=== PATIENT | female | born 1975 | race Caucasian/White ===

== ENCOUNTER 2023-11-04 14:31 | Emergency (ER) | payer OTHER, SELFPAY ==
[2023-11-04 14:36] VITALS: BP 116/84; PULSE 89; TEMP 36.6; O2SAT 98; BMI 22.9
--- NOTE | 2023-11-04 14:52 | XR_ITS ---
[facility] [place] [id number] Patient Name: NICOLE CORDERO MRN: [id number] date: 1975 Sex: F Assigned Patient Location: ER Current Patient Location: ED.MAIN Accession/Order Number: [id number] Exam Date: 11/04/2023 14:57 Report Date: 11/04/2023 16:07 At the request of: HANNAH CARLSON Procedure: XR chest 2V CHEST X-RAY, TWO VIEWS HISTORY: Cough. COMPARISON: None. FINDINGS: The heart, jeffrey, and mediastinum are unremarkable. The lungs are grossly clear. There are no pleural effusions. There is no pneumothorax. XR/XR chest 2V IMPRESSION: No evidence of acute cardiopulmonary disease. Electronically authenticated by: ABBY PALMER Date: 11/04/2023 16:07
--- NOTE | 2023-11-04 14:53 | ED.URI1 ---
HPI - URI/Sore Throat General Chief Complaint: Upper Respiratory Infection Stated Complaint: COUGH AND CONGESTION Time Seen by Provider: 11/04/23 14:43 Limitations: no limitations History of Present Illness HPI Narrative: 48-year-old female presents to the emergency department for cough. She has had this for few days and her dad recently was admitted for pneumonia and RSV. She had been around him. She had part of her right middle lobe removed in May of this year for lung cancer. She is been coughing up some yellow phlegm, no hemoptysis and she has not had a known fever. Related Data Home Medications ?Medication ?Instructions ?Recorded ?Confirmed tirzepatide 2.5 mg/0.5 mL 2.5 mg subcut .weekly 11/04/23 11/04/23 subcutaneous pen injector (Faisal) Previous Rx's ?Medication ?Instructions ?Recorded benzonatate 100 mg capsule 100 mg PO TID PRN cough #20 caps 11/04/23 loratadine 5 mg-pseudoephedrine ER 1 tab PO Q12H PRN nasal congestion 11/04/23 120 mg tablet,extended #20 tabs release,12hr (Claritin-D 12 Hour) Allergies Allergy/AdvReac Type Severity Reaction Status Date / Time insulin glargine Allergy Mild Anaphylaxis Verified 11/04/23 14:43 [From Lantus U-100 Insulin] Review of Systems ROS Narrative A ten point review of systems is negative except as noted above. Exam Narrative Exam Narrative: Nurses note and vital signs reviewed and patient is not hypoxic. General: The patient appears well and in no apparent distress. Patient is resting comfortably on cart. She is speaking in full sentences Skin: Warm, dry, no pallor noted. There is no rash noted. Head: Normocephalic, atraumatic Eye: Normal conjunctiva, no drainage Ears, Nose, Mouth, and Throat: oral mucosa is moist. Nares patent. Cardiovascular: Regular Rate and Rhythm Respiratory: Patient is in no distress, no accessory muscle use, lungs are clear to auscultation, no wheezing, rales or rhonchi. Good air movement present. Back: non-tender GI: Soft and nontender Musculoskeletal: The patient has no evidence of calf tenderness, no pitting edema, symmetrical pulses noted bilaterally Neurological: A&O, normal speech Psychiatric: Cooperative Constitutional Vital Signs, click to edit/add: Last Vital Signs Temp 97.8 F 11/04/23 14:36 Pulse 89 11/04/23 14:36 Resp 18 11/04/23 14:36 BP 116/84 11/04/23 14:36 Pulse Ox 99 11/04/23 15:15 O2 Del Method Room Air 11/04/23 15:15 Course Vital Signs Vital signs: Vital Signs Temperature 97.8 F 11/04/23 14:36 Pulse Rate 89 11/04/23 14:36 Respiratory Rate 18 11/04/23 14:36 Blood Pressure 116/84 11/04/23 14:36 Pulse Oximetry 98 11/04/23 14:36 Oxygen Delivery Method Room Air 11/04/23 14:36 Temperature 97.8 F 11/04/23 14:36 Pulse Rate 89 11/04/23 14:36 Respiratory Rate 18 11/04/23 14:36 Blood Pressure 116/84 11/04/23 14:36 Pulse Oximetry 99 11/04/23 15:15 Oxygen Delivery Method Room Air 11/04/23 15:15 MDM - URI/Sore Throat MDM Narrative Medical decision making narrative: COVID, RSV, and chest x-ray are all negative. My clinical impression is that she has a viral infection. Antibiotics are not indicated. Treatment diagnosis and follow-up were discussed with the patient. Differential Diagnosis Differential diagnosis: Likely upper respiratory infection, viral infection, bronchitis and other (COVID, pneumonia) Lab Data Attestation: I reviewed the patient's lab results. Labs: Lab Results 11/04/23 Range/Units 14:38 RSV Antigen Not detected (NOT DETECTE) SARS-CoV-2 Ag (CV2AG) Negative (NEGATIVE) Imaging Data Chest x-ray: Radiologist's impression: ITS Impressions Chest X-Ray 11/04/23 14:52 IMPRESSION: No evidence of acute cardiopulmonary disease. Electronically authenticated by: ABBY PALMER Date: 11/04/2023 16:07 Discharge Plan Discharge Stand Alone Forms: Portal Instructions Chief Complaint: Upper Respiratory Infection Clinical Impression: Bronchitis Patient Disposition: Home, Self-Care Time of Disposition Decision: 16:26 Condition: Good Mode of Transportation: Private Vehicle Prescriptions / Home Meds: New benzonatate 100 mg capsule 100 mg PO TID PRN (Reason: cough) Qty: 20 0RF Claritin-D 12 Hour 5-120 mg tablet extended release 12 hr 1 tab PO Q12H PRN (Reason: nasal congestion) Qty: 20 0RF No Action Mounjaro 2.5 mg/0.5 mL pen injector 2.5 mg SUBCUT .weekly Print Language: Polish Instructions: Acute Bronchitis (ED) Referrals: Physician,Non-Staff, [Physician] - 1 week
[2023-11-04 15:11] LABS: Internal Control Within Normal Limits; Respiratory Syncytial Virus Not Detected (NOT DETECTE); SARS-CoV-2 Ag NEGATIVE (NEGATIVE)
[2023-11-04 15:15] VITALS: O2SAT 99
[2023-11-04 16:37] VITALS: BP 120/68; PULSE 74; O2SAT 99
== END 2023-11-04 16:38 | disposition home or self-care (01) ==
PROVIDERS: Emergency Provider Emergency Medicine; PCP Family Medicine
DX: J40 Bronchitis, not specified as acute or chronic (principal); Z20.822 Contact with and (suspected) exposure to COVID-19
CPT/HCPCS: 71046; 87420; 87811; 99285

== ENCOUNTER 2024-01-03 16:24 | Emergency (ER) | payer OTHER, SELFPAY ==
[2024-01-03 16:30] VITALS: BP 120/86; PULSE 88; TEMP 37.1; O2SAT 96; BMI 23.8
--- NOTE | 2024-01-03 16:41 | ED_ITS ---
HPI HPI - General Adult General Chief complaint: Back Pain/Injury Stated complaint: Back Pain Time Seen by Provider: 01/03/24 16:30 Source: patient Mode of arrival: walk-in Limitations: no limitations History of Present Illness HPI narrative: Patient is a 48-year-old female who presents to the emergency department for pain in the right thoracic back along the area where she had a previous lobectomy of the right middle lobe of the lung. She states she was diagnosed with cancer but when the lobe of the lung was removed, there was no cancer and she is not currently being treated for cancer. She states she did have burning pain along the area for several months after the surgery in May of this year. She states the pain has resolved and now since yesterday has returned. She states she is not sure if the pain is from a pulled muscle or from the previous surgery. She has not had any fevers, cough or congestion. She denies a possibility of . She took ibuprofen 1 hour ago without improvement. No hemoptysis. Related Data Home Medications ?Medication ?Instructions ?Recorded ?Confirmed tirzepatide 2.5 mg/0.5 mL 2.5 mg subcut .weekly 11/04/23 11/04/23 subcutaneous pen injector (Faisal) Previous Rx's ?Medication ?Instructions ?Recorded benzonatate 100 mg capsule 100 mg PO TID PRN cough #20 caps 11/04/23 loratadine 5 mg-pseudoephedrine ER 1 tab PO Q12H PRN nasal congestion 11/04/23 120 mg tablet,extended #20 tabs release,12hr (Claritin-D 12 Hour) methocarbamol 750 mg tablet 750 mg PO TID PRN pain #20 tabs 01/03/24 Allergies Allergy/AdvReac Type Severity Reaction Status Date / Time insulin glargine Allergy Mild Anaphylaxis Verified 01/03/24 16:30 [From Lantus U-100 Insulin] Opioid HPI Opioid Management Most Recent Opioid Data: Last Pain Scale 8 01/03/24 16:37 Review of Systems ROS Constitutional Denies: fever or chills Ears, nose, mouth, and throat Denies: throat pain or nasal congestion Cardiovascular Denies: chest pain Respiratory Reports: pain on inspiration; Denies: shortness of breath or cough Gastrointestinal Denies: nausea or vomiting Musculoskeletal Reports: back pain; Denies: neck pain Integumentary/Breast Denies: rash Neurological Denies: headache, numbness in extremities or weakness in extremities Hematologic/Lymphatic Denies: easy bruising or easy bleeding PFSH PFS Social History Little interest or pleasure in doing things: not at all Feeling down, depressed, or hopeless: not at all Exam Narrative Exam Narrative: Gen.: Awake, alert, in no distress Head: Normocephalic, atraumatic ENT: Moist mucous membranes Respiratory: No respiratory distress, lungs clear bilaterally; 3 small well- healed surgical incisions along the right thoracic back. No rash or color change noted Cardio: Regular rate and rhythm Back: No bony tenderness of the T-spine or L-spine Extremities: Moves extremities equally Psych: Normal mood and affect Neuro: No focal neuro deficit Skin: Warm, dry, intact Constitutional Vital Signs, click to edit/add: Last Vital Signs Temp 98.8 F 01/03/24 16:30 Pulse 88 01/03/24 16:30 Resp 16 01/03/24 16:30 BP 120/86 01/03/24 16:30 Pulse Ox 96 01/03/24 16:30 O2 Del Method Room Air 01/03/24 16:30 Course Vital Signs Vital signs: Vital Signs Temperature 98.8 F 01/03/24 16:30 Pulse Rate 88 01/03/24 16:30 Respiratory Rate 16 01/03/24 16:30 Blood Pressure 120/86 01/03/24 16:30 Pulse Oximetry 96 01/03/24 16:30 Oxygen Delivery Method Room Air 01/03/24 16:30 Temperature 98.8 F 01/03/24 16:30 Pulse Rate 88 01/03/24 16:30 Respiratory Rate 16 01/03/24 16:30 Blood Pressure 120/86 01/03/24 16:30 Pulse Oximetry 96 01/03/24 16:30 Oxygen Delivery Method Room Air 01/03/24 16:30 Medical Decision Making MDM Narrative Medical decision making narrative: Laboratory studies reviewed and noted within normal limits including D-dimer. Two-view chest x-ray with no evidence of acute cardiopulmonary changes or thoracic changes. Patient treated for musculoskeletal pain. She is agreeable to a muscle relaxant for home although she was not agreeable to any narcotic medications or taking a steroid at home. She can continue ibuprofen [id number]. Follow-up with PCP and return to the ER if symptoms change or worsen SHARED APC VISIT, PHYSICIAN ATTESTATION: [id number] I performed a substantive part of the MDM during the patient?s E/M visit. I personally evaluated and examined the patient. I personally made or approved the documented management plan and acknowledge its risk of complications. Medical Records Medical records reviewed: Yes I reviewed the patient's medical records Lab Data Lab results reviewed: Yes I reviewed the patient's lab results Labs: Lab Results 01/03/24 Range/Units 16:45 WBC 7.7 (4.0-11.0) 10^3/uL RBC 4.49 (4.20-5.40) 10^6/uL Hgb 14.4 (12.0-16.0) g/dL Hct 42.1 (36.0-48.0) % MCV 93.8 (81.0-99.0) fL MCH 32.1 (26.7-34.0) pg MCHC 34.2 (29.9-35.2) g/dL RDW 12.8 (11.0-15.0) % Plt Count 234 (150-450) 10^3/uL MPV 8.9 L (9.5-13.5) fL Neut % (Auto) 50.2 (43.0-75.0) % Lymph % (Auto) 40.2 (20.5-60.0) % Grant % (Auto) 5.6 (1.7-12.0) % Eos % (Auto) 2.7 (0.9-7.0) % Baso % (Auto) 1.0 (0.2-2.0) % Neut # (Auto) 3.9 (1.4-6.5) 10^3/uL Lymph # (Auto) 3.1 (1.2-3.8) 10^3/uL Grant # (Auto) 0.4 (0.3-0.8) 10^3/uL Eos # (Auto) 0.2 (0.0-0.7) 10^3/uL Baso # (Auto) 0.1 (0.0-0.1) 10^3/uL Abs Immat Gran (auto) 0.02 (0.00-0.03) 10^3/uL Imm/Tot Granulo (auto) 0.3 (0.0-0.5) % D-Dimer <0.19 (<=0.59) mg/L FEU Sodium 136 (136-145) mmol/L Potassium 3.9 (3.5-5.1) mmol/L Chloride 102 (98-107) mmol/L Carbon Dioxide 30.9 (21.0-32.0) mmol/L Anion Gap 7.0 BUN 13.0 (7.0-18.0) mg/dL Creatinine 0.61 (0.55-1.02) mg/dL Est GFR ( Amer) >60 (>=60) Est GFR (Non-Af Amer) >60 (>=60) BUN/Creatinine Ratio 21.3 Glucose 102 (74-106) mg/dL Calcium 9.4 (8.5-10.1) mg/dL Total Bilirubin 0.2 (0.2-1.0) mg/dL AST 14 L (15-37) U/L ALT 25 (14-59) U/L Alkaline Phosphatase 123 H (46-116) U/L Troponin I High Sens 5.0 (4.0-51.3) pg/mL Total Protein 6.9 (6.4-8.2) g/dL Albumin 3.5 (3.4-5.0) g/dL Globulin 3.4 g/dL Albumin/Globulin Ratio 1.0 Lipase 41.0 (16.0-77.0) U/L Serum HCG, Qual Negative (NEGATIVE) Imaging Data Chest x-ray: Attestation: I have reviewed the pertinent imaging results. Radiologist's impression: ITS Impressions Chest X-Ray 01/03/24 17:27 IMPRESSION: Right lower lung postoperative change. Left axillary surgical clips. Chest is otherwise unremarkable. Electronically authenticated by: ELISSA PREEA Date: 01/03/2024 18:07 Discharge Plan Discharge Chief Complaint: Back Pain/Injury Clinical Impression: Thoracic back pain Patient Disposition: Home, Self-Care Time of Disposition Decision: 18:38 Condition: Good Prescriptions / Home Meds: New methocarbamol 750 mg tablet 750 mg PO TID PRN (Reason: pain) Qty: 20 0RF No Action Mounjaro 2.5 mg/0.5 mL pen injector 2.5 mg SUBCUT .weekly benzonatate 100 mg capsule 100 mg PO TID PRN (Reason: cough) Qty: 20 0RF Claritin-D 12 Hour 5-120 mg tablet extended release 12 hr 1 tab PO Q12H PRN (Reason: nasal congestion) Qty: 20 0RF Print Language: Citizen Of [place] Instructions: Thoracic Pain (ED) Referrals: Rafael Crump DO [Primary Care Provider] - 1 week
[2024-01-03] MEDS: ORPHENADRINE 60 MG/ 2 ML VIAL IV (16:49)
[2024-01-03] MEDS: METHYLPREDNISOLONE SOD SUCC PF 125 MG/2 ML VIAL IVP (16:50)
[2024-01-03 16:56] LABS: Basophils Absolute Auto 0.1 10^3/uL (0.0-0.1); Eosinophils Absolute Auto 0.2 10^3/uL (0.0-0.7); Eosinophils Percent Auto 2.7 % (0.9-7.0); Hematocrit 42.1 % (36.0-48.0); Hemoglobin 14.4 g/dL (12.0-16.0); Immature Granulocytes Abs Auto 0.02 10^3/uL (0.00-0.03); Immature Granulocytes Pct Auto 0.3 % (0.0-0.5); Lymphocytes Absolute Auto 3.1 10^3/uL (1.2-3.8); Lymphocytes Percent Auto 40.2 % (20.5-60.0); Mean Corpuscular HGB Conc 34.2 g/dL (29.9-35.2); Mean Corpuscular Hemoglobin 32.1 pg (26.7-34.0); Mean Corpuscular Volume 93.8 fL (81.0-99.0); Mean Platelet Volume 8.9 fL (9.5-13.5); Monocytes Absolute Auto 0.4 10^3/uL (0.3-0.8); Monocytes Percent Auto 5.6 % (1.7-12.0); Neutrophils Absolute Auto 3.9 10^3/uL (1.4-6.5); Neutrophils Percent Auto 50.2 % (43.0-75.0); Platelet Count 234 10^3/uL (150-450); Red Blood Count 4.49 10^6/uL (4.20-5.40); Red Cell Distribution Width 12.8 % (11.0-15.0); White Blood Count 7.7 10^3/uL (4.0-11.0)
[2024-01-03 17:06] LABS: HCG Qualitative NEGATIVE (NEGATIVE); Internal Control Within Normal Limits
[2024-01-03 17:07] LABS: D Dimer <0.19 mg/L FEU (<=0.59)
[2024-01-03 17:10] LABS: Alanine Aminotransferase 25 U/L (14-59); Albumin Level 3.5 g/dL (3.4-5.0); Alkaline Phosphatase 123 U/L (46-116); Aspartate Amino Transferase 14 U/L (15-37); BUN Creatinine Ratio 21.3; Bilirubin Total 0.2 mg/dL (0.2-1.0); Calcium 9.4 mg/dL (8.5-10.1); Carbon Dioxide 30.9 mmol/L (21.0-32.0); Chloride 102 mmol/L (98-107); Estimated GFR (African America >60 (>=60); Estimated GFR (Non-African Ame >60 (>=60); Globulin 3.4 g/dL; Glucose 102 mg/dL (74-106); Potassium 3.9 mmol/L (3.5-5.1); Sodium 136 mmol/L (136-145); Total Protein 6.9 g/dL (6.4-8.2)
--- NOTE | 2024-01-03 17:27 | XR_ITS ---
The [address] [address] Patient Name: NICOLE CORDERO MRN: [id number] date: 1975 Sex: F Assigned Patient Location: ER Current Patient Location: ED.MAIN Accession/Order Number: [id number] Exam Date: 01/03/2024 17:39 Report Date: 01/03/2024 18:07 At the request of: TERRANCE STEWART Procedure: XR chest 2V Exam: Radiographs: XR chest 2V Reason for exam: Thoracic back pain Comparison: Chest x-ray dated 10/27/2023 XR/XR chest 2V IMPRESSION: Right lower lung postoperative change. Left axillary surgical clips. Chest is otherwise unremarkable. Electronically authenticated by: ELISSA PEREA Date: 01/03/2024 18:07
[2024-01-03 18:37] VITALS: PULSE 74; O2SAT 98
== END 2024-01-03 18:42 | disposition home or self-care (01) ==
PROVIDERS: Physician Assistant; Emergency Provider Emergency Medicine; PCP Family Medicine
DX: M54.6 Pain in thoracic spine (principal); Z90.2 Acquired absence of lung [part of]
CPT/HCPCS: 36415; 71046; 80053; 83690; 84484; 84703; 85025; 85378; 96374; 96375; 99285; J2360; J2919

== ENCOUNTER 2024-05-07 14:04 | Emergency (ER) | payer OTHER, SELFPAY ==
[2024-05-07 14:07] VITALS: BP 114/80; PULSE 72; TEMP 37; O2SAT 100; BMI 25.6
[2024-05-07 14:16] LABS: Glucometer 113 mg/dL (74-106)
--- NOTE | 2024-05-07 14:17 | XR_ITS ---
The [address] [address] Patient Name: NICOLE CORDERO MRN: [id number] date: 1975 Sex: F Assigned Patient Location: ER Current Patient Location: ER Accession/Order Number: [id number] Exam Date: 05/07/2024 14:50 Report Date: 05/07/2024 15:07 At the request of: TERRANCE STEWART Procedure: XR chest 1V EXAM: XR chest 1V HISTORY: Cough COMPARISON: Chest radiograph dated 01/03/2024. TECHNIQUE: AP erect portable chest radiograph performed. FINDINGS: The trachea is midline. The heart size is normal. There is increased density within the right infrahilar region which in the right clinical setting can be associated with a pneumonia. There is no pleural effusion or pulmonary vascular congestion. There is no pneumothorax or acute osseous abnormality. There are stable surgical clips within the left axillary region. XR/XR chest 1V IMPRESSION: Increased density within the right infrahilar region which in the right clinical setting can be associated with a pneumonia. Appropriate medical treatment and a follow-up chest radiograph to confirm complete resolution recommended. Electronically authenticated by: SKYE CONTRERAS Date: 05/07/2024 15:07
--- NOTE | 2024-05-07 14:19 | ED.GENADUL1 ---
HPI HPI - General Adult General Chief complaint: Nausea/Vomiting/Diarrhea Stated complaint: DEHYDRATION COUGHING VOMITTING Time Seen by Provider: 05/07/24 14:05 Source: patient and family Mode of arrival: walk-in History of Present Illness HPI narrative: Patient is a 48-year-old female with a history of type 2 diabetes who presents to the emergency department for evaluation of flulike illness over the last several days. Patient states she has been unable to get her tirzepatide to treat her type 2 diabetes for 18 months, her primary care provider is aware that she has been fighting with the pharmacies and insurance companies to get this medication. She does not take any other diabetic medications and her last hemoglobin A1c was 5.8. She states for the last several days she feels she is very dehydrated as she has had vomiting without diarrhea, subjective fever, cold chills, coughing with no significant sputum production. She states she coughed vigorously in the car on the way over, she states she feels she pulled something in her right ribs. No medications taken prior to arrival. She has no concern for . Related Data Home Medications ?Medication ?Instructions ?Recorded ?Confirmed tirzepatide 2.5 mg/0.5 mL 2.5 mg subcut .weekly 11/04/23 11/04/23 subcutaneous pen injector (Faisal) Previous Rx's ?Medication ?Instructions ?Recorded benzonatate 100 mg capsule 100 mg PO TID PRN cough #20 caps 11/04/23 loratadine 5 mg-pseudoephedrine ER 1 tab PO Q12H PRN nasal congestion 11/04/23 120 mg tablet,extended #20 tabs release,12hr (Claritin-D 12 Hour) methocarbamol 750 mg tablet 750 mg PO TID PRN pain #20 tabs 01/03/24 fgutdxxngpksqwt-qxhpjgebekfzzzw-NO 10 ml PO Q6H PRN cold symptoms 05/07/24 2 mg-30 mg-10 mg/5 mL oral syrup #200 mL (Bromfed DM) levofloxacin 750 mg tablet 750 mg PO DAILY 5 days #5 tabs 05/07/24 ondansetron 4 mg disintegrating 4 mg PO Q6H PRN nausea and 05/07/24 tablet vomiting #12 tabs valacyclovir 500 mg tablet 500 mg PO Q12H 3 days #6 tabs 05/07/24 (Valtrex) Allergies Allergy/AdvReac Type Severity Reaction Status Date / Time insulin glargine (From Allergy Mild Anaphylaxis Verified 01/03/24 16:30 Lantus U-100 Insulin) Opioid HPI Opioid Management Most Recent Opioid Data: Last Pain Scale 8 01/03/24 16:37 01/03/24 Review of Systems ROS Constitutional Reports: fever and chills Ears, nose, mouth, and throat Reports: nasal congestion; Denies: throat pain Cardiovascular Denies: chest pain Respiratory Reports: cough; Denies: shortness of breath Gastrointestinal Reports: nausea and vomiting; Denies: abdominal pain or diarrhea Integumentary/Breast Denies: rash Neurological Denies: numbness in extremities or weakness in extremities Hematologic/Lymphatic Denies: easy bruising or easy bleeding PFSH PFS Social History Little interest or pleasure in doing things: not at all Feeling down, depressed, or hopeless: not at all Exam Narrative Exam Narrative: Gen.: Awake, alert, in no distress Head: Normocephalic, atraumatic ENT: Moist mucous membranes, cold sores noted to the upper and lower lips Respiratory: No respiratory distress, lungs clear bilaterally; no wheezing or rhonchi. Patient speaks in full sentences Cardio: Regular rate and rhythm Gastrointestinal: Abdomen is soft, nondistended and nontender to palpation Extremities: Moves extremities equally Psych: Normal mood and affect Neuro: No focal neuro deficit Skin: Warm, dry, intact Constitutional Vital Signs, click to edit/add: Last Vital Signs Temp 98.6 F 05/07/24 14:07 Pulse 72 05/07/24 14:07 Resp 18 05/07/24 14:07 BP 114/80 05/07/24 14:07 Pulse Ox 100 05/07/24 14:07 Course Vital Signs Vital signs: Vital Signs Temperature 98.6 F 05/07/24 14:07 Pulse Rate 72 05/07/24 14:07 Respiratory Rate 18 05/07/24 14:07 Blood Pressure 114/80 05/07/24 14:07 Pulse Oximetry 100 05/07/24 14:07 Temperature 98.6 F 05/07/24 14:07 Pulse Rate 72 05/07/24 14:07 Respiratory Rate 18 05/07/24 14:07 Blood Pressure 114/80 05/07/24 14:07 Pulse Oximetry 100 05/07/24 14:07 Medical Decision Making MDM Narrative Medical decision making narrative: Patient is in no distress, hemodynamically stable and treated with IV fluids and Zofran. She declined Hycodan for cough medication. Chest x-ray shows possible secondary pneumonia, otherwise clear. Patient is in no respiratory distress in the ER. She request Valtrex prescription for her cold sores which she has taken in the past. She was placed on Levaquin, Valtrex, Bromfed-DM, Zofran for home. She is encouraged to follow-up with primary care and return to the emergency department if symptoms change or worsen. SUPERVISED APC VISIT, PHYSICIAN ATTESTATION: Based on the medical record the care appears appropriate. ? Medical Records Medical records reviewed: Yes I reviewed the patient's medical records Lab Data Lab results reviewed: Yes I reviewed the patient's lab results Labs: Lab Results 05/07/24 05/07/24 05/07/24 Range/Units 14:14 14:30 14:32 WBC 3.8 L (4.0-11.0) 10^3/uL RBC 4.44 (4.20-5.40) 10^6/uL Hgb 14.4 (12.0-16.0) g/dL Hct 41.8 (36.0-48.0) % MCV 94.1 (81.0-99.0) fL MCH 32.4 (26.7-34.0) pg MCHC 34.4 (29.9-35.2) g/dL RDW 12.6 (11.0-15.0) % Plt Count 177 (150-450) 10^3/uL MPV 9.5 (9.5-13.5) fL Neut % (Auto) 68.2 (43.0-75.0) % Lymph % (Auto) 24.4 (20.5-60.0) % [place] % (Auto) 6.4 (1.7-12.0) % Eos % (Auto) 0.5 L (0.9-7.0) % Baso % (Auto) 0.5 (0.2-2.0) % Neut # (Auto) 2.6 (1.4-6.5) 10^3/uL Lymph # (Auto) 0.9 L (1.2-3.8) 10^3/uL [place] # (Auto) 0.2 L (0.3-0.8) 10^3/uL Eos # (Auto) 0.0 (0.0-0.7) 10^3/uL Baso # (Auto) 0.0 (0.0-0.1) 10^3/uL Abs Immat Gran (auto) 0.00 (0.00-0.03) 10^3/uL Imm/Tot Granulo (auto) 0.0 (0.0-0.5) % VBG pH 7.481 H (7.330-7.430) VBG pCO2 40.4 (40.0-52.0) mmHg Sodium 139 (136-145) mmol/L Potassium 4.1 (3.5-5.1) mmol/L Chloride 101 (98-107) mmol/L Carbon Dioxide 29.7 (21.0-32.0) mmol/L Anion Gap 12.4 BUN 8.0 (7.0-18.0) mg/dL Creatinine 0.73 (0.55-1.02) mg/dL Est GFR ( Amer) >60 (>=60 mL/min/1.73m^2) Est GFR (Non-Af Amer) >60 (>=60 mL/min/1.73m^2) BUN/Creatinine Ratio 11.0 Glucose 111 H (74-106) mg/dL Lactate 1.4 (0.4-2.0) mmol/L Calcium 8.9 (8.5-10.1) mg/dL Total Bilirubin 0.2 (0.2-1.0) mg/dL AST 31 (15-37) U/L ALT 34 (14-59) U/L Alkaline Phosphatase 110 (46-116) U/L Troponin I High Sens 4.0 (4.0-51.3) pg/mL Total Protein 7.1 (6.4-8.2) g/dL Albumin 3.4 (3.4-5.0) g/dL Globulin 3.7 g/dL Albumin/Globulin Ratio 0.9 TSH 1.706 (0.358-3.740) uIU/mL Acetone, Qual Negative (NEGATIVE) Influenza Type A Ag Positive A Influenza Type B Ag Negative SARS-CoV-2 Ag (CV2AG) Negative (NEGATIVE) POC Glucose 113 H (74-106) mg/dL Imaging Data Chest x-ray: Attestation: I have reviewed the pertinent imaging results. Radiologist's impression: ITS Impressions Chest X-Ray 05/07/24 14:17 IMPRESSION: Increased density within the right infrahilar region which in the right clinical setting can be associated with a pneumonia. Appropriate medical treatment and a follow-up chest radiograph to confirm complete resolution recommended. Electronically authenticated by: SKYE CONTRERAS Date: 05/07/2024 15:07 Discharge Plan Discharge Chief Complaint: Nausea/Vomiting/Diarrhea Clinical Impression: Influenza A, Pneumonia, Nausea & vomiting Patient Disposition: Home, Self-Care Time of Disposition Decision: 15:15 Condition: Good Prescriptions / Home Meds: New levofloxacin 750 mg tablet 750 mg PO DAILY 5 Days Qty: 5 0RF ltugmotcyepilrj-ecmrptoar-RZ [Bromfed DM] 2-30-10 mg/5 mL syrup 10 ml PO Q6H PRN (Reason: cold symptoms) Qty: 200 0RF ondansetron 4 mg tablet,disintegrating 4 mg PO Q6H PRN (Reason: nausea and vomiting) Qty: 12 0RF valacyclovir [Valtrex] 500 mg tablet 500 mg PO Q12H 3 Days Qty: 6 0RF No Action Mounjaro 2.5 mg/0.5 mL pen injector 2.5 mg SUBCUT .weekly benzonatate 100 mg capsule 100 mg PO TID PRN (Reason: cough) Qty: 20 0RF Claritin-D 12 Hour 5-120 mg tablet extended release 12 hr 1 tab PO Q12H PRN (Reason: nasal congestion) Qty: 20 0RF methocarbamol 750 mg tablet 750 mg PO TID PRN (Reason: pain) Qty: 20 0RF Print Language: Tajik Instructions: Influenza (ED), Acute Nausea and Vomiting (ED) Referrals: Rafael Crump DO [Primary Care Provider] - 1 week
[2024-05-07] MEDS: 0.9 % SODIUM CHLORIDE 1,000 ML 1000 ML IV (14:39)
[2024-05-07] MEDS: ONDANSETRON PF 4 MG/2 ML VIAL IV (14:40)
[2024-05-07 14:41] LABS: PCO2 VBG 40.4 mmHg (40.0-52.0); pH VBG 7.481 (7.330-7.430)
[2024-05-07 14:42] LABS: Basophils Percent Auto 0.5 % (0.2-2.0); Eosinophils Percent Auto 0.5 % (0.9-7.0); Hematocrit 41.8 % (36.0-48.0); Hemoglobin 14.4 g/dL (12.0-16.0); Lymphocytes Absolute Auto 0.9 10^3/uL (1.2-3.8); Lymphocytes Percent Auto 24.4 % (20.5-60.0); Mean Corpuscular HGB Conc 34.4 g/dL (29.9-35.2); Mean Corpuscular Hemoglobin 32.4 pg (26.7-34.0); Mean Corpuscular Volume 94.1 fL (81.0-99.0); Mean Platelet Volume 9.5 fL (9.5-13.5); Monocytes Absolute Auto 0.2 10^3/uL (0.3-0.8); Monocytes Percent Auto 6.4 % (1.7-12.0); Neutrophils Absolute Auto 2.6 10^3/uL (1.4-6.5); Neutrophils Percent Auto 68.2 % (43.0-75.0); Platelet Count 177 10^3/uL (150-450); Red Blood Count 4.44 10^6/uL (4.20-5.40); Red Cell Distribution Width 12.6 % (11.0-15.0); White Blood Count 3.8 10^3/uL (4.0-11.0)
[2024-05-07 14:49] LABS: Acetone NEGATIVE (NEGATIVE)
[2024-05-07 15:04] LABS: Influenza Virus A Antigen Positive; Influenza Virus B Antigen Negative; Internal Control Within Normal Limits
[2024-05-07 15:05] LABS: Internal Control Within Normal Limits; SARS-CoV-2 Ag NEGATIVE (NEGATIVE)
[2024-05-07 15:17] LABS: Lactate/Lactic Acid 1.4 mmol/L (0.4-2.0)
[2024-05-07 15:23] LABS: Alanine Aminotransferase 34 U/L (14-59); Albumin Globulin Ratio 0.9; Albumin Level 3.4 g/dL (3.4-5.0); Alkaline Phosphatase 110 U/L (46-116); Anion Gap 12.4; Aspartate Amino Transferase 31 U/L (15-37); Bilirubin Total 0.2 mg/dL (0.2-1.0); Calcium 8.9 mg/dL (8.5-10.1); Carbon Dioxide 29.7 mmol/L (21.0-32.0); Chloride 101 mmol/L (98-107); Estimated GFR (African America >60 (>=60 mL/min/1.73m^2); Estimated GFR (Non-African Ame >60 (>=60 mL/min/1.73m^2); Globulin 3.7 g/dL; Glucose 111 mg/dL (74-106); Potassium 4.1 mmol/L (3.5-5.1); Sodium 139 mmol/L (136-145); Total Protein 7.1 g/dL (6.4-8.2)
[2024-05-07 15:41] LABS: Thyroid Stimulating Hormone 1.706 uIU/mL (0.358-3.740)
== END 2024-05-07 16:06 | disposition home or self-care (01) ==
PROVIDERS: Physician Assistant; Emergency Provider Emergency Medicine; PCP Family Medicine
DX: J10.00 Influenza due to other identified influenza virus with unspecified type of pneumonia (principal); R11.2 Nausea with vomiting, unspecified; E11.9 Type 2 diabetes mellitus without complications; Z79.85 Long-term (current) use of injectable non-insulin antidiabetic drugs; B00.1 Herpesviral vesicular dermatitis
CPT/HCPCS: 36415; 71045; 80053; 81001; 82009; 82800; 83605; 84443; 84484; 85025; 87804; 87811; 96361; 96374; 99285; J2405